=== PATIENT | male | born 1970 | race Caucasian/White ===

== ENCOUNTER 2022-07-21 05:51 | Emergency (ER) | payer BC ==
[2022-07-21 06:06] VITALS: O2SAT 97
[2022-07-21] MEDS ORDERED: TORAdol 30 mg Injection IM ONE (06:16)
[2022-07-21] MEDS ORDERED: Norflex 60 MG/2 ML IM ONE (06:17)
[2022-07-21] MEDS ORDERED: TORAdol 30 mg Injection ONE (06:19)
[2022-07-21] MEDS ORDERED: Norflex 60 MG/2 ML ONE (06:20)
--- NOTE | 2022-07-21 06:23 | ERPHSYRPT ---
- History of Present Illness Source: patient Exam Limitations: no limitations Patient Subjective Stated Complaint: chronic neck pain flare up Triage Nursing Assessment: pt ambulatory to room by self, pt alert and oriented x3, pt c/o chronic L sided neck pain flare up after an accident 2 years ago, this particular flare up started 2 weeks ago, pt has seen PCP was set up with PT, pt is supposed to go to PT this morning, tylenol 500 mg and motrin 800 mg taken at 0300 with no relief Physician History: 51 yo wm w chronic cervical pain x 1.5 years since hitting a cow presents w worsening of pain this morning. Pain is L posterior, 8/10 on scale, and worse w cervical movement. Pain does radiate to his LUE. He denies any weakness or numbness of his LUE. Chest pain and dyspnea are also denied. Acute trauma is also denied. He has no headache. Denies acute trauma at this time. He is under care of his [employer] and is supposed to start PT today. Timing/Duration: other (1.5 years/worse today) Method of Injury: other (Pt states that he hit a cow) Quality: sharp Back Pain Location: paraspinous muscles (L posterior cervical musculature) Severity of Pain-Max: severe Severity of Pain-Current: severe Modifying Factors: Improves With: movement Associated Symptoms: denies symptoms Previous symptoms: same symptoms as today Allergies/Adverse Reactions: Penicillins Allergy (Mild, Unverified 02/14/12 10:31) Home Medications: Metoprolol Tartrate 50 mg BID 02/14/12 [History] Hx Tetanus, Diphtheria Vaccination/Date Given: Yes Hx Influenza Vaccination/Date Given: Yes Hx Pneumococcal Vaccination/Date Given: No Immunizations Up to Date: Yes Travel Risk - International Travel Have you traveled outside of the country in past 3 weeks: No - Coronavirus Screening Are you exhibiting any of the following symptoms?: No Close contact with a COVID-19 positive Pt in past 14-21 Days: No - Vaccine Status Have you recieved a Covid-19 vaccination: No - Review of Systems Constitutional: No Symptoms Eyes: No Symptoms Ears, Nose, & Throat: No Symptoms Respiratory: No Symptoms Cardiac: No Symptoms Abdominal/Gastrointestinal: No Symptoms Genitourinary Symptoms: No Symptoms Musculoskeletal: No Symptoms, Neck Pain Skin: No Symptoms Neurological: No Symptoms Psychological: No Symptoms Endocrine: No Symptoms Hematologic/Lymphatic: No Symptoms Immunological/Allergic: No Symptoms - Past Medical History Pertinent Past Medical History: No (remote asthma) Neurological History: Migraines Cardiac History: Hypertension Respiratory History: Asthma, Bronchitis Endocrine Medical History: Diabetes Type II Musculoskeletal History: Osteoarthritis, Other Other Medical History: Brachial plexus injuryon R side with pulling JESSY. No residual issues following surgery. - Past Surgical History Past Surgical History: Yes Musculoskeletal: Orthopedic Surgery Other Surgical History: LOW BACK PAIN, R SHOULDER - Social History Smoking Status: Never smoker Exposure to second hand smoke: No Drug Use: none Patient Lives Alone: No - Nursing Vital Signs Nursing Vital Signs: Initial Vital Signs Temperature 97.0 F 07/21/22 05:59 Pulse Rate 95 H 07/21/22 05:59 Respiratory Rate 18 07/21/22 05:59 Blood Pressure 147/85 07/21/22 05:59 O2 Sat by Pulse Oximetry 97 07/21/22 05:59 Pain Scale Pain Intensity [Left Neck] 8 Pain Intensity 8 Hypertensive - Physical Exam General Appearance: no apparent distress Eye Exam: PERRL/EOMI, eyes nml inspection Ears, Nose, Throat Exam: normal ENT inspection, TMs normal, pharynx normal, moist mucous membranes Neck Exam: limited range of motion, other (Moderately TTP L posterior, cervical musculature), No meningismus, No mass, No Brudzinski, No Kernig's, No carotid bruit Respiratory Exam: normal breath sounds, lungs clear, airway intact, No respiratory distress Cardiovascular Exam: regular rate/rhythm, normal heart sounds, normal peripheral pulses, capillary refill <2 sec, No murmur Gastrointestinal Exam: soft, normal bowel sounds, other (Obese), No tenderness Back Exam: normal inspection, normal range of motion, No CVA tenderness, No vertebral tenderness Extremity Exam: normal inspection, normal range of motion, pelvis stable Peripheral Pulses: carotid (R): 2+, carotid (L): 2+ Neurologic Exam: alert, oriented x 3, cooperative, delivery supervisor II-XII nml as tested, normal mood/affect, nml cerebellar function, nml station & gait, sensation nml, No motor deficits, No sensory deficit Skin Exam: normal color, warm, dry, No rash Lymphatic Exam: No adenopathy SpO2 Interpretation: normal SpO2: 97 O2 Delivery: Room Air - Course Nursing assessment & vital signs reviewed: Yes Ordered Tests: Medication Summary Generic Name Dose Route Start Last Admin Trade Name Weroq PRN Reason Stop Dose Admin Ketorolac Tromethamine 30 mg 07/21/22 06:16 Ketorolac Tromethamine 30 Mg/Ml Inj IM 07/21/22 06:17 STAT ONE Orphenadrine Citrate 60 mg 07/21/22 06:17 Orphenadrine Citrate 60 Mg/2 Ml Vial IM 07/21/22 06:18 STAT ONE - Progress Progress Note: 07/21/22 06:27 30mg IM Toradol/60mg IM Norflex Counseled pt/family regarding: diagnosis, need for follow-up - Departure Departure Disposition: Home Clinical Impression: Torticollis Condition: Stable Critical Care Time: No Referrals: KARLENE CRAMER NP [Primary Care Provider] - Follow up/PCP as directed Instructions: Chronic Pain (DC), Chronic Neck Pain (DC), Generalized Neck Pain (DC) Additional Instructions: Rest/Heat/Massage Toradol/Norflex as needed for pain Follow up with your family MD Return to ER for worsening of symptoms Forms: Work/School Release Form Prescriptions: Orphenadrine Citrate 100 mg [Norflex 100 MG Tablet] 100 mg PO BID PRN PRN #14 tab PRN Reason: Pain Ketorolac Trometh 10 mg Tab [TORAdol 10 MG TABLET] 10 mg PO TID PRN PRN #14 tablet PRN Reason: Pain
[2022-07-21 06:37] VITALS: BP 143/77; PULSE 80
== END 2022-07-21 06:37 | disposition home or self-care (01) ==
LOC: ED 05:51
DX: M43.6 Torticollis (principal); I10 Essential (primary) hypertension; E11.9 Type 2 diabetes mellitus without complications; Z79.899 Other long term (current) drug therapy
CPT/HCPCS: 96372; 99283; J1885; J2360

== ENCOUNTER 2022-08-27 14:00 | Day surgery (SDC) | payer BC ==
[2022-08-27] MEDS ORDERED: LIDOCAINE HCL 1% 50 MG/5 ML VL PF IJ ONE (14:01)
[2022-08-27] MEDS ORDERED: Decadron 4 MG INJ IV ONE (14:01)
[2022-08-27] MEDS ORDERED: Sodium Chloride 0.9(Preservative Free) 10 ML IJ ONE (14:01)
--- NOTE | 2022-08-27 16:59 | XRAY ---
Indication: Cervical GLORIA. Intraoperative fluoroscopy provided for 41 seconds. 8 digital spot images submitted for interpretation demonstrates posterior needle tip projecting posterior to the cervical thoracic junction. Small amount of contrast injected for needle tip placement. Correlate with intraoperative findings/report.
--- NOTE | 2022-08-27 16:59 | XRAY ---
41 seconds of fluoroscopy was used in surgery for a cervical GLORIA.
== END 2022-08-27 16:25 | disposition home or self-care (01) ==
LOC: SDC-PAIN 14:00
PROVIDERS: ATTEND Psychiatry & Neurology Pain Medicine
DX: M54.12 Radiculopathy, cervical region (principal); E11.9 Type 2 diabetes mellitus without complications; Z79.899 Other long term (current) drug therapy
CPT/HCPCS: 62321; 72040; 77003; 82947; J1100; J2001; Q9966

== ENCOUNTER 2024-07-13 15:42 | Day surgery (SDC) | payer BC ==
[2024-07-13] MEDS ORDERED: Sodium Chloride 0.9(Preservative Free) 10 ML IJ ONE (15:43)
[2024-07-13] MEDS ORDERED: Decadron 4 MG INJ IV ONE (15:43)
[2024-07-13] MEDS ORDERED: LIDOCAINE HCL 1% AMPUL 5 ML IJ ONE (15:43)
--- NOTE | 2024-07-13 18:27 | XRAY ---
Indication: Cervical GLORIA. Intraoperative fluoroscopy provided for 34 seconds. 8 digital spot images submitted for interpretation demonstrates posterior needle tip projecting posterior to cervical thoracic junction. Small amount of contrast injected for needle tip placement. Correlate with intraoperative findings/report.
--- NOTE | 2024-07-14 08:50 | XRAY ---
34 seconds of fluoroscopy was used in surgery for a cervical GLORIA.
== END 2024-07-13 17:54 | disposition home or self-care (01) ==
LOC: SDC-PAIN 15:42
PROVIDERS: ATTEND Psychiatry & Neurology Pain Medicine
DX: M54.12 Radiculopathy, cervical region (principal); E11.9 Type 2 diabetes mellitus without complications
CPT/HCPCS: 72040; 77003; 82947; J1100

== ENCOUNTER 2024-12-07 07:50 | Day surgery (SDC) | payer BC ==
[2024-12-07] MEDS ORDERED: LIDOCAINE HCL 2% 100 MG/5 ML IJ ONE (07:51)
[2024-12-07] MEDS ORDERED: Lactated Ringers 500 ML IV ONE (08:00)
[2024-12-07] MEDS ORDERED: propofoL IV ONE (09:31)
--- NOTE | 2024-12-07 11:43 | XRAY ---
Indication: Right C2-C4 MBB. Intraoperative fluoroscopy provided for 35 seconds. 3 digital spot image submitted for interpretation demonstrate posterior needle tips projecting over expected right C2-C4 nerve roots. Correlate with intraoperative findings/report.
--- NOTE | 2024-12-07 12:56 | XRAY ---
35 seconds of fluoroscopy was used in surgery for a right C2-C4 MBB.
== END 2024-12-07 10:02 | disposition home or self-care (01) ==
LOC: SDC-PAIN 07:50
PROVIDERS: ATTEND Psychiatry & Neurology Pain Medicine
DX: M47.812 Spondylosis without myelopathy or radiculopathy, cervical region (principal); E11.9 Type 2 diabetes mellitus without complications
CPT/HCPCS: 64490; 64491; 72040; 82947; J2704

== ENCOUNTER 2024-12-29 08:07 | Day surgery (SDC) | payer BC ==
[2024-12-29] MEDS ORDERED: BUPIVACAINE 0.5% VIAL IJ ONE (08:08)
[2024-12-29] MEDS ORDERED: propofoL IV ONE (09:55)
--- NOTE | 2024-12-29 12:08 | XRAY ---
33 seconds of fluoroscopy used in surgery for a right C2-C4 MBB.
--- NOTE | 2024-12-29 12:08 | XRAY ---
Indication: Right C2-C4 MBB. Intraoperative fluoroscopy provided for 33 seconds. 3 digital spot image submitted for interpretation demonstrates posterior needle tips projecting over expected right C2-C4 nerve roots. Correlate with intraoperative findings/report.
[2024-12-29] MEDS ORDERED: Lactated Ringers 1,000 ML IV ONE (13:08)
== END 2024-12-29 10:28 | disposition home or self-care (01) ==
LOC: SDC-PAIN 08:07
PROVIDERS: ATTEND Psychiatry & Neurology Pain Medicine
DX: M47.812 Spondylosis without myelopathy or radiculopathy, cervical region (principal); E11.9 Type 2 diabetes mellitus without complications
CPT/HCPCS: 64490; 64491; 72040; 82947; J2704